=== PATIENT | female | born 1945 | race Caucasian/White ===

== ENCOUNTER 2023-06-27 09:59 | Inpatient (IN) ==
[~2023-06-27 09:59] MED LIST: Buffered Lidocaine 1% SYRIN 1 ml INTRADERM ONE; Lactated Ringers 1000 ml BAG 1,000 ML IV SCH
[2023-06-27] MEDS ORDERED: Phenylephrine IV 10 MG/ML 1 ml VIAL ONE (10:32)
[2023-06-27] MEDS ORDERED: fentaNYL 100 mcg/2 ml 50 MCG/ML VIAL ONE (10:37)
[2023-06-27] MEDS ORDERED: Midazolam 2 mg/2 ml VIAL 1 mg/ml 2 ml VIAL (2 mg) ONE (10:37)
[2023-06-27 10:43] LABS: Rapid COVID-19 Molecular Undetected (Undetected)
[2023-06-27] MEDS ORDERED: ceFAZolin 2 GM in NS PREMIX 2 GM/100 ML BAG IVPB ONE (10:54)
[2023-06-27] MEDS ORDERED: Ondansetron 4 mg VIAL 2 MG/ML 2 ml VIAL IV PRN ×2 (11:47→13:46)
[2023-06-27] MEDS ORDERED: fentaNYL 100 mcg/2 ml 50 MCG/ML VIAL IV PRN (11:47)
[2023-06-27] MEDS ORDERED: Naloxone 0.4 mg VIAL 0.4 mg/ml 1 ml VIAL IV PRN (11:47)
[2023-06-27] MEDS ORDERED: ROPIVACAINE 5 MG/ML 30 ML BTL (0.5%) ONE (12:18)
[2023-06-27] MEDS ORDERED: Bupivacaine 0.5% PF 10 ML SDV VIAL INJ ONE (12:45)
[2023-06-27] MEDS ORDERED: Ondansetron 4 mg VIAL 2 MG/ML 2 ml VIAL ONE (13:17)
[2023-06-27] MEDS ORDERED: Dexamethasone IV 4 MG/ML VIAL 1 ml VIAL ONE (13:17)
[2023-06-27] MEDS ORDERED: Sterile Water for Inj 10 ML ONE (13:37)
[2023-06-27] MEDS ORDERED: Ondansetron ODT 4 mg TAB 4 MG TAB PO PRN (13:46)
[2023-06-27] MEDS ORDERED: Morphine 2 MG/ML SYRINGE IV PRN (13:46)
[2023-06-27] MEDS ORDERED: Magnesium Hydroxide LIQ 30 ML UDC PO PRN (13:46)
[2023-06-27] MEDS ORDERED: Lactulose 30 ml UDC PO PRN (13:46)
[2023-06-27] MEDS ORDERED: ceFAZolin 1 GM ADVAN 1 GM in NS 0.9% 50 ML 50 ML IVPB SCH (14:00)
[2023-06-27] MEDS ORDERED: Acetaminophen IV 1 GM/100ML 1,000 MG/100 ML BAG IV ONE (14:01)
[2023-06-27] MEDS: Lactated Ringers 1000 ml BAG 1,000 ML IV SCH (18:00)
[2023-06-27] MEDS ORDERED: PTO: Latanoprost 0.005% 2.5 ml BTL BOTH EYES SCH (21:00)
[2023-06-27] MEDS: Magnesium Hydroxide LIQ 30 ML UDC PO SCH (21:52)
[2023-06-27] MEDS: ceFAZolin 1 GM ADVAN 1 GM in NS 0.9% 50 ML 50 ML IVPB SCH (21:56)
[2023-06-27] MEDS: PTO: Dorzolamide/Timolol OPTH (NF) 10 ML BOT BOTH EYES SCH (22:10)
[2023-06-28] MEDS: Lactated Ringers 1000 ml BAG 1,000 ML IV SCH (02:57)
[2023-06-28 04:31] LABS: Hematocrit 33.2 % (35-45); Hemoglobin 11.2 g/dL (11.5-14.3); Mean Platelet Volume 8.4 fL (7.5-11.2); Platelet Count 242 10^3/uL (150-450)
[2023-06-28 04:49] LABS: Calcium 8.4 mg/dL (8.6-10.3); Creatinine, Serum 0.59 mg/dL (0.51-0.95); Magnesium 1.7 mg/dL (1.9-2.7); Potassium 3.8 mmol/L (3.5-5.0)
[2023-06-28] MEDS ORDERED: Magnesium Sulfate 2 gm BAG 2 GM/50 ML BAG IVPB ONE (05:04)
[2023-06-28] MEDS: ceFAZolin 1 GM ADVAN 1 GM in NS 0.9% 50 ML 50 ML IVPB SCH (05:24)
[2023-06-28 05:31] LABS: High Sensitivity Troponin 1 Hr 4 pg/mL (<15)
[2023-06-28] MEDS: Magnesium Hydroxide LIQ 30 ML UDC PO SCH (07:37)
[2023-06-28] MEDS ORDERED: Vitamin THERAPEUTIC TAB PO SCH (09:00)
[2023-06-28 10:52] VITALS: BP 90/47
[2023-06-28] MEDS: PTO: Dorzolamide/Timolol OPTH (NF) 10 ML BOT BOTH EYES SCH (11:17)
== END 2023-06-28 15:00 | disposition home or self-care (01) | DRG 470 ==
LOC: INTOOBSV 09:59 → OBSVTOIN 09:59 → AA 09:59 → SSU 13:46
PROVIDERS: ADMIT Orthopaedic Surgery Adult Reconstructive Orthopaedic Surgery; ATTEND Orthopaedic Surgery Adult Reconstructive Orthopaedic Surgery